=== PATIENT | male | born 1960 | race Caucasian/White ===

== ENCOUNTER 2017-07-04 22:48 | Emergency (ER) | payer MEDICAID, OTHER | END 2017-07-05 01:15 | disposition home or self-care (01) | LOC: E/R 22:48 | DX: G51.0 Bell's palsy (principal); R40.2142 Coma scale, eyes open, spontaneous, at arrival to emergency department; R40.2362 Coma scale, best motor response, obeys commands, at arrival to emergency department; R40.2252 Coma scale, best verbal response, oriented, at arrival to emergency department | CPT/HCPCS: 70450; 99284-25 ==